=== PATIENT | male | born 1950 | race Caucasian/White ===

== ENCOUNTER 2017-11-16 10:50 | Emergency (ER) | payer MEDICARE, OTHER ==
[2017-11-16 12:06] VITALS: TEMP 96.5
--- NOTE | 2017-11-16 12:34 | ED.PDOC ---
History of Present Illness - General Chief Complaint: Problem Stated Complaint: difficulty urinating Time Seen by Provider: 11/16/17 12:25 Source: patient, Vital Signs reviewed Additional Information: 67 YEAR OLD WHITE MALE HERE WITH CHIEF COMPLAINT OF INABILITY TO URINATE HE HAD SEEN HIS UROLOGIST [place] LAST WEEK HE WAS ASKED TO SELF CATHERTERIZE BUT HE UNABLE TO DO SO HE IS NOT ABLE TO PASS THE CATHERTER HE HAS NO FEVER CHILLS NO FLANK PAIN NO HEMATURIA OR DYSURIA BUT HAS URGENCY AND FREQUENCY BUT ONLY PASSES FEW TRIBBLES - History of Present Illness Timing/Duration: week Quality: moderate Onset Location: suprapubic Radiation: none Activites at Onset: none Sexual intercourse history: not active Improving Factors: nothing Worsening Factors: nothing Associated Symptoms: denies symptoms Allergies/Adverse Reactions: Allergies NO KNOWN ALLERGY Allergy (Verified 01/31/16 17:47) Home Medications: Ambulatory Orders Aspirin [Christina Low Dose] 81 mg PO DAILY 01/31/16 Atorvastatin Calcium [Lipitor] 20 mg PO BEDTIME 01/31/16 Clopidogrel Bisulfate [Plavix] 75 mg PO QD 01/31/16 Linagliptin [Tradjenta] 5 mg PO DAILY 01/31/16 Metformin HCl 1,000 mg PO BID 01/31/16 Metoprolol Tartrate 25 mg PO BID 01/31/16 Spironolactone 50 mg PO DAILY 01/31/16 Celecoxib 200 mg PO DAILY 11/16/17 Insulin Degludec [Tresiba Flextouch] 25 unit SC DAILY 11/16/17 Tamsulosin [Flomax] 0.4 mg PO QD 11/16/17 flavoxATE HYDROCHLORIDE [Urispas] 100 mg PO Q8HRS #30 tab 11/16/17 Review of Systems - Review of Systems Constitutional: States: no symptoms reported EENTM: States: no symptoms reported Respiratory: States: no symptoms reported Cardiology: States: no symptoms reported Gastrointestinal/Abdominal: States: no symptoms reported Genitourinary: States: see HPI Musculoskeletal: States: no symptoms reported Skin: States: no symptoms reported Neurological: States: no symptoms reported Endocrine: States: no symptoms reported Past Medical History (General) - Patient Medical History Hx Seizures: No Hx Stroke: No Hx Asthma: No Hx of COPD: No Hx Cardiac Disorders: Yes - Recent stint placement Hx Congestive Heart Failure: No Hx Pacemaker: No Hx Hypertension: No Hx Diabetes: Yes Hx MRSA: No Surgical History: cholecystectomy - Vaccination History Hx Influenza Vaccination: No Hx Pneumococcal Vaccination: No - Social History Hx Tobacco Use: Yes Hx Alcohol Use: No Hx Substance Use: No Hx Physical Abuse: No Hx Emotional Abuse: No Family Medical History - Family History Father Family History: Unknown Living Status: Unknown Physical Exam - Physical Exam General Appearance: Alert, Anxious Eyes, Ears, Nose, Throat Exam: PERRL/EOMI, normal ENT inspection, TMs normal Neck: non-tender, full range of motion, supple, normal inspection Cardiovascular/Respiratory: regular rate, rhythm, no M/R/G, normal peripheral pulses, no JVD, normal breath sounds, no respiratory distress Gastrointestinal/Abdominal: normal bowel sounds, non tender, soft Male Genital Exam: normal genitalia, normal prostate, no hernia Neurologic: body straightener II-XII nml as tested, no motor/sensory deficits, alert, normal mood/affect, oriented x 3 Skin Exam: normal color Progress - Results/Orders Results/Orders: Laboratory Tests 11/16/17 13:05 Urine Color Yellow Urine Appearance Cloudy Urine pH 5.5 Ur Specific [place] >= 1.030 Urine Protein >=300 H Urine Glucose (UA) 250 H Urine Ketones Trace Urine Blood Large H Urine Nitrite Negative Urine Bilirubin Negative Urine Urobilinogen 0.2 Ur Leukocyte Esterase Moderate H Urine RBC Obscured by wbc's H Urine WBC Tntc H Ur Epithelial Cells 0 Urine Bacteria Obscured by wbc's H 16 FR URINARY HORN CATHETER PLACED WITH DIFFICULTY ( SOME RESISTANCE FELT DURING INTRODUCTION 300 CC URINE DRAINED THAT APPEARED CLOUDY UA SUGGESTIVE OF INFECTION WILL ASK HIM TO CONTINUE CIPRO THAT HE IS ON AND LEAVE THE HORN IN WITH A LEG BAG FOLLOW UP WTH HIS UROLOGIST TOMORROW WE WILL ADD URISPAS FOR SYMTOMATIC TREATMENT OF HIS BLADDER SPASM Departure - Departure Clinical Impression: Urinary tract infection, Urethritis Time of Disposition: 13:39 Disposition: Discharge to Home or Self Care Condition: Good Departure Forms: ED Discharge - Pt. Copy, Patient Portal Self Enrollment Diet: resume usual diet Referrals: Jay Carlos MD [Primary Care Provider] - 1-2 Weeks Home Medications: Ambulatory Orders Aspirin [Christina Low Dose] 81 mg PO DAILY 01/31/16 Atorvastatin Calcium [Lipitor] 20 mg PO BEDTIME 01/31/16 Clopidogrel Bisulfate [Plavix] 75 mg PO QD 01/31/16 Linagliptin [Tradjenta] 5 mg PO DAILY 01/31/16 Metformin HCl 1,000 mg PO BID 01/31/16 Metoprolol Tartrate 25 mg PO BID 01/31/16 Spironolactone 50 mg PO DAILY 01/31/16 Celecoxib 200 mg PO DAILY 11/16/17 Insulin Degludec [Tresiba Flextouch] 25 unit SC DAILY 11/16/17 Tamsulosin [Flomax] 0.4 mg PO QD 11/16/17 flavoxATE HYDROCHLORIDE [Urispas] 100 mg PO Q8HRS #30 tab 11/16/17
[2017-11-16 13:31] VITALS: BP 139/79; O2SAT 94
== END 2017-11-16 13:47 | disposition home or self-care (01) ==
LOC: ER 10:50
DX: N39.0 Urinary tract infection, site not specified (principal); N34.2 Other urethritis; E11.9 Type 2 diabetes mellitus without complications; Z79.84 Long term (current) use of oral hypoglycemic drugs; Z87.891 Personal history of nicotine dependence; Z98.61 Coronary angioplasty status; Z79.82 Long term (current) use of aspirin

== ENCOUNTER → 2019-01-12 | Outpatient (CLI) | payer MEDICARE ==
--- NOTE | 2019-01-12 15:41 | CT ---
EXAM DESCRIPTION: Chest w/o Contrast : Computed Tomography. CLINICAL HISTORY: 68 years Male CHRONIC OBSTRUCTIVE LUNG DISEASE COMPARISON: Chest and thorax CT scan 11/28/2015. TECHNIQUE: Spiral-axial scans at 5 x 5 mm intervals through the lungs and thorax without IV contrast. 2.5 x 5 mm lung algorithm axial reconstructions. 2.0 Mm reconstructions. No adverse reactions. Total Exam DLP: 465.5. mGy-cm. This exam was performed according to our departmental dose-optimization program which includes automated exposure control, adjustment of the mA and/or kV according to patient size and/or use of iterative reconstruction technique; to reduce radiation dose to as low as reasonably achievable (ALARA). Nodule measurements under 10 mm are given as mean value of 3 axes diameters. FINDINGS: Lungs and large airways: Round calcified nodule in the medial aspect of the superior segment right lower lobe measuring 8 mm on this study compared to 7.2 mm on the prior study. Soft tissue nodule abutting the pleura without calcification lateral aspect of the superior segment measuring 1 cm (axial series 4, image 84) compared to 9 mm on the prior study. Stable 3.5 mm nodule abutting the pleura in the lateral segment right middle lobe on image 4/88 stable since the prior study as well as aline-fissural nodule and a slightly lower level on the horizontal fissure on image 4/90 stable 5 mm nodule abutting the pleura lateral right upper lobe on image 4/52. Stable 4 mm subpleural nodule anterior right upper lobe on image 4/46. Stable 2 mm nodule lateral subpleural right upper lobe on image 4/56. Bilateral posterior dependent atelectasis. 4.5 mm subpleural lateral right lower lobe, stable solid nodule on image 4/75. 2 new 5 mm solid nodules in the subpleural lateral left lower lobe on images 4/85-87. Subpleural blebs and bulla in the superior segment. Stable 4.9 mm solid nodule superior segment left lower lobe medially on image 4/64 new 4 mm nodule in the inferior lingula subpleural laterally on image 4/86. Emphysematous changes with multiple blebs and bulla in a paraseptal distribution, more numerous in the upper lobes than the lower lobes. Minimal bilateral perihilar peribronchial wall cuffing.. Pleural spaces: No effusion or pneumothorax. Mediastinum and Tania: Small lymph nodes stable since the prior study. Great vessels and Heart: Coronary artery calcifications and stents. Calcifications aortic arch, descending thoracic aorta, and proximal brachiocephalic vessels. Soft tissues of neck base, axillae, and chest wall: Negative. Upper abdomen: Please see abdominal pelvic CT scan today. Osseous structures: Bilateral arthrosis in the shoulders. Arthrosis in the manubriosternal joint. Arthrosis in the bilateral first costochondral joints. The cartilage is significantly calcified. IMPRESSION: 1. Multiple bilateral lung nodules more numerous in the right upper lobe, middle lobe and lingula, and the bilateral lower lobes. Most of the nodules are stable since prior CT scan in November 2015. There are 2 new nodules approximately 5 mm in diameter in the superior segment of the left lower lobe, and the inferior lingula of the left upper lobe which are new since the prior CT scan. Patient also has diffuse paraseptal type emphysema more prevalent in the bilateral upper lobes this is stable since the prior study. The new left lung nodules may represent inflammatory process, or other chronic slow-growing process. Recurrent primary or metastatic disease is less likely. Recommend CT scan of the chest and thorax with IV contrast in 3-6 month interval, and follow-up [address] scan with IV contrast is stable. Electronically signed by: Roddy Navarro MD 01/12/2019 3:39 PM CDT
--- NOTE | 2019-01-12 16:27 | CT ---
EXAM DESCRIPTION: Abdomen/Pelvis w/wo Contrast: Computed Tomography. CLINICAL HISTORY: ABDOMINAL PAIN COMPARISON: CT scan of the chest without contrast on this visit. CT scan abdomen and pelvis without contrast 01/31/2016. TECHNIQUE: Spiral-axial scans at 5 x 5 mm intervals through the abdomen and pelvis before and after 75 mL Optiray 320 nonionic IV contrast. No oral contrast. Coronal and sagittal 2.0 mm reconstructions. 5 x 5 mm Delayed helical-axial scans, liver through the pubic symphysis. No adverse reactions. Total Exam DLP 1391.53 mGy - cm. This exam was performed according to our departmental CT dose-optimization program which includes automated exposure control, adjustment of the mA and/or kV according to patient size and/or use of iterative reconstruction technique; to reduce radiation dose to as low as reasonably achievable (ALARA). FINDINGS: Lung bases and pleura: Multiple nodules. Please see chest CT images and report. Liver, Stomach, Spleen, Adrenal Glands: Calcification spleen. Stomach negative. Other solid organs unremarkable. Pancreas, Gallbladder, Ducts: Gallbladder surgically removed with no fluid in the gallbladder fossa. Minimal dilation common bile duct. Pancreas negative. Kidneys and Ureters: Unremarkable. Mesentery: Negative. Aorta: Marked atherosclerotic calcification and intimal wall thickening. Thickening and mural thrombus begins just below the origin of the SMA, increases thickness in the infrarenal segment. 3.2 x 2.9 Centimeters aneurysm at the L3 level. 2.8 x 2.5 cm on the prior study. Lumen caliber is 2.0 x 1.9 cm. Approximately 2.7 cm long, involving the origin of the CHEMA, and distal margin is 3 cm above the bifurcation. No para-aortic mass or contrast extravasation. Small Bowel: Mild distention with air-fluid levels throughout more proximal than distal but no transition point. Terminal Ileum/Cecum: TI unremarkable with cecum slightly distended by gas and fecal matter. Normal caliber of the appendix with no surrounding inflammatory changes. Colon: Minimal distention also ascending colon with gas/fecal matter, extending into the transverse colon which is also distended by gas to the proximal descending colon. Diffuse diverticula proximal sigmoid colon and the descending colon is decompressed with no complications. Pelvic Organs: Urinary bladder suprapubic catheter, new since the prior study, with balloon inflated and the bladder is decompressed. Bilateral large calcifications in the prostate gland. No free fluid or pelvic soft tissue mass. Spine and Bony Pelvis: Advanced spondylosis more right than left L4-L5 and minimal spondylosis more left than right L2-L3. Also degenerative scoliosis lumbar upper dextroscoliosis and lower levoscoliosis. Narrowing of the bilateral hip joints. Abdominal Wall/Back Soft Tissues: No complications around the suprapubic catheter. Bilateral fatty inguinal hernias not containing bowel extending to the scrotum. Small diastases at the umbilicus not containing bowel. IMPRESSION: 1.3.2 cm abdominal aortic aneurysm. Minimal enlargement since the prior study in January 2016. Recommend follow-up every 3 years. Reference: J Am Panfilo Radiol 2013;10:789-794. 2. Cholecystectomy since the prior study. Multiple splenic calcifications stable. Sigmoid colon diverticulosis without complications stable. Constipation proximal colon extending into the transverse colon along with increased gas. Minimal distention of the small bowel more proximal to distal with air-fluid levels also seen on the prior scan. Electronically signed by: Roddy Navarro MD 01/12/2019 4:25 PM CDT
== END ==
LOC: LAB.O 12:32
PROVIDERS: ATTEND Family Medicine
DX: J44.9 Chronic obstructive pulmonary disease, unspecified (principal); R91.8 Other nonspecific abnormal finding of lung field; I71.4 Abdominal aortic aneurysm, without rupture; N63.10 Unspecified lump in the right breast, unspecified quadrant; K80.20 Calculus of gallbladder without cholecystitis without obstruction; K59.00 Constipation, unspecified; K57.30 Diverticulosis of large intestine without perforation or abscess without bleeding; E11.9 Type 2 diabetes mellitus without complications

== ENCOUNTER → 2019-01-14 | Outpatient (CLI) | payer MEDICARE ==
--- NOTE | 2019-01-14 20:13 | US ---
EXAM DESCRIPTION: Diagnostic Mammo,Bilateral (accession [id number]), Breast,Bilateral (accession [id number]): Ultrasound CLINICAL HISTORY: 68 yearsMaleUNSPECIFIED LUMP IN THE RIGHT BREAST UNSPEC QUADRANT patient has been on spironolactone. Increased risk for gynecomastia. Movable hard mass behind right nipple.. COMPARISON: CT scan of the chest and thorax without IV contrast on 2018. TECHNIQUE: Bilateral LM, MLO, and CC projection full-field images, digital mammographic tomosynthesis technique. Bilateral 2-D digital full-field images. LM, MLO, and CC: CAD not utilized. . Transcutaneous scanning of the right breast utilizing mcneal-scale and Doppler modes. Scanning performed by the orchid superintendent and Dr. Navarro. FINDINGS: The breast parenchymal density pattern is: Almost entirely fatty. No skin thickening or nipple retraction increased retroareolar density bilaterally similar in volume consistent with gynecomastia. Mass density in the retroareolar right breast with coarse central calcification. Similar appearance as a degenerating fibroadenoma. Lobulated borders with some spiculation. 1.7 x 1.6 x 1.4 cm. No other calcifications bilaterally. Ultrasound: Scanning of the bilateral retroareolar breast. Right breast demonstrates hypoechoic rim with central echogenic regions with some shadowing consistent with calcifications. The mass is predominantly demonstrating posterior acoustic enhancement with edge shadowing. Hypoechoic tissue in the retroareolar left breast with ill-defined margins and verbal posterior acoustic transmission. IMPRESSION: 1. BI-RADS Category 4: SUSPICIOUS. Sub-category 4A - Low Suspicion For Malignancy. 2. Surgical consultation and tissue diagnosis is recommended if there are no clinical contraindications. The FINDINGS and FOLLOW-UP plan were reviewed in person with the patient following the examination. Written communication explaining the IMPRESSION and FOLLOW-UP will be mailed to the patient and referring care provider. CRITICAL COMMUNICATION: The critical value was communicated by text message from Dr. Navarro 953 hours, with text acknowledgment by Dr. Mj Carlos at approximately 954 hours, on January 14, 2019. Electronically signed by: Roddy Navarro MD 01/14/2019 8:11 PM CDT
== END ==
LOC: MAMMO 09:00
PROVIDERS: ATTEND Family Medicine
DX: N63.10 Unspecified lump in the right breast, unspecified quadrant (principal)

== ENCOUNTER → 2019-01-26 | Outpatient (CLI) | payer MEDICARE ==
--- NOTE | 2019-01-27 15:08 | US ---
EXAM DESCRIPTION: Biopsy/Needle Guidance CLINICAL HISTORY: 68 yearsMaleBREAST LUMP COMPARISON: Diagnostic ultrasound of the right breast on 01/14/2019. TECHNIQUE: The procedure was performed by Dr. Garland. Repeat ultrasound localized the lesion at the retroareolar position of the right breast. Sterile preparation. Sterile ultrasound guidance. FINDINGS: 2.0 x 1.8 cm heterogeneous hypoechoic and hyperechoic right retroareolar mass, on images prior to the procedure. No images taken during the procedure. IMPRESSION: Successful, ultrasound-guided needle core biopsy of right retroareolar breast mass in a 68-year-old male. Pathology examination at remote facility, results pending. Electronically signed by: Roddy Navarro MD 01/27/2019 3:07 PM CDT
== END ==
LOC: US 11:00
PROVIDERS: ATTEND Surgery
DX: D05.91 Unspecified type of carcinoma in situ of right breast (principal)

== ENCOUNTER 2019-01-28 05:39 | Day surgery (SDC) | payer MEDICARE ==
[2019-01-28] MEDS ORDERED: PROPOFOL 200 MG/20 ML VIAL IV ONE (07:00)
[2019-01-28] MEDS ORDERED: LIDOCAINE 1% 10 ML VIAL INJ ONE (07:00)
[2019-01-28] MEDS ORDERED: LACTATED RINGERS 1,000 ML ONE (07:17)
[2019-01-28 08:27] VITALS: O2SAT 93
--- NOTE | 2019-01-28 09:48 | OP ---
DATE OF PROCEDURE: 01/28/19 PREOPERATIVE DIAGNOSIS: 1. Anemia, need for colonoscopy. The patient is also on blood thinners that cannot be stopped at this time. POSTOPERATIVE DIAGNOSIS: 1. Anemia, need for colonoscopy. The patient is also on blood thinners that cannot be stopped at this time. PROCEDURE: 1. Colonoscopy. SURGEON: Maynor Galrand MD ANESTHESIA: General. FINDINGS: One cecal polyp approximately 4 mm, possibly adenomatous. Another hyperplastic polyp in the distal ascending colon, otherwise normal. No evidence of colitis. COMPLICATIONS: None. ESTIMATED BLOOD LOSS : None. CONDITION: Stable. PLAN: Discharge. INDICATION: The patient is a 68-year-old man recently placed on blood thinners. He has also had a history of anemia. He has not had a colonoscopy. We are also evaluating him for right breast mass, but he needs a colonoscopy. Per evaluation by his pipelines manager, he cannot go off the blood thinners at this time, so we discussed a diagnostic, nontherapeutic colonoscopy. PROCEDURE: General anesthesia was induced, which he tolerated. The colonoscope was passed with minor difficulty in through the twisted sigmoid colon, but otherwise it went well. We saw the terminal ileum. The colonic wall was relatively thin. We could see the peristalsis of the small bowel through much of the ascending colon. There was a small, possibly adenomatous polyp in the cecum. There was no evidence of bleeding. It was estimated just over 4 mm. Otherwise, no other significant polyps were seen. There was a small hyperplastic polyp noticed in the distal ascending colon. The rest of the exam was normal but for diverticulosis. He tolerated the procedure and was then taken to Recovery to be discharged. I will see him next week regarding his breast biopsy and further recommendations on the colon. [id number]
[2019-01-28 10:24] VITALS: BP 120/74; TEMP 97.3
== END 2019-01-28 10:10 | disposition home or self-care (01) ==
LOC: AMB 05:39
PROVIDERS: ATTEND Surgery
DX: D64.9 Anemia, unspecified (principal); D12.2 Benign neoplasm of ascending colon; K57.30 Diverticulosis of large intestine without perforation or abscess without bleeding; E11.9 Type 2 diabetes mellitus without complications; J44.9 Chronic obstructive pulmonary disease, unspecified; N63.10 Unspecified lump in the right breast, unspecified quadrant; F17.210 Nicotine dependence, cigarettes, uncomplicated; Z90.49 Acquired absence of other specified parts of digestive tract; Z79.84 Long term (current) use of oral hypoglycemic drugs; Z79.02 Long term (current) use of antithrombotics/antiplatelets; Z79.82 Long term (current) use of aspirin; Z79.899 Other long term (current) drug therapy
CPT/HCPCS: 00811; 36416; 45378; 82948; J3490; J7120

== ENCOUNTER 2019-02-12 05:31 | Day surgery (SDC) | payer MEDICARE ==
[2019-02-12] MEDS ORDERED: BUPIVACAINE 0.5% W/EPI 30 ML VIAL INJ ONE (11:40)
[2019-02-12] MEDS ORDERED: LACTATED RINGERS 1,000 ML ONE (11:47)
[2019-02-12] MEDS ORDERED: ceFAZolin SODIUM 1 GM VIAL ONE (12:03)
[2019-02-12] MEDS ORDERED: SODIUM CHL 0.9% 100ML MINI-BAG 100 ML IVPB ONE (12:03)
--- NOTE | 2019-02-12 13:39 | NM ---
EXAM DESCRIPTION: Lymphatics Lymph Nodes CLINICAL HISTORY: MALIGNANT NEOPLASM OF MALE BREAST RIGHT COMPARISON: Diagnostic bilateral breast digital mammography and directed bilateral breast ultrasound 01/14/2019. Ultrasound-guided core biopsy right breast mass 01/26/2019. TECHNIQUE: Patient supine on scanning table. Procedure performed by Dr. Navarro. Skin surrounding right breast nipple cleaned with alcohol. Approximately 0.251 mCi of the Tc 99M sulfur colloid was injected in 2 volumes,intradermally at the 10:00 and 3:00 positions of the right nipple edge. A total dose 0.534 millicuries of technetium 99m sulfur colloid radiopharmaceutical was injected. Standard precautions for handling the radiopharmaceutical were employed. The patient tolerated the procedure with moderate discomfort . No significant leakage of radiopharmaceutical or hemorrhage. FINDINGS: No images were obtained. IMPRESSION: Successful, subdermal injection of technetium 99m sulfur colloid around the right nipple for sentinel node mapping followed by surgical excision of positive lymph nodes. Electronically signed by: Roddy Navarro MD 02/12/2019 1:37 PM CDT
[2019-02-12] MEDS ORDERED: LEVALBUTEROL NEBS 1.25 MG/3 ML VIAL NEB ONE ×2 (13:41→15:13)
[2019-02-12] MEDS ORDERED: raNITIdine HCL INJ 25 MG/ML VIAL ONE (14:00)
[2019-02-12] MEDS ORDERED: HYDROmorphone HCL INJ 2 MG/ML VIAL ONE (14:00)
[2019-02-12] MEDS ORDERED: PROPOFOL 200 MG/20 ML VIAL IV ONE (14:00)
[2019-02-12] MEDS ORDERED: SODIUM CHLORIDE 0.9% 50 ML VIAL ONE (14:00)
[2019-02-12] MEDS ORDERED: LIDOCAINE 1% 10 ML VIAL INJ ONE (14:00)
[2019-02-12] MEDS ORDERED: MIDAZOLAM INJ 2 MG/2 ML VIAL ONE (14:00)
[2019-02-12] MEDS ORDERED: DEXAMETHASONE INJ 10 MG/ML VIAL ONE (14:00)
--- NOTE | 2019-02-12 14:06 | OP ---
DATE OF PROCEDURE: 02/12/19 PREOPERATIVE DIAGNOSIS: 1. Right breast cancer in a male. POSTOPERATIVE DIAGNOSIS: 1. Right breast cancer in a male. PROCEDURE: 1. Right mastectomy. 2. Injection for sentinel node biopsy. 3. Excision, deep axillary sentinel nodes times 2. SURGEON: Maynor Garland MD. CHARGE ENTRY CLERK: Otilio Mckenzie MD. ANESTHESIA: General and local. FINDINGS: Central tumor, subareolar, with grossly negative skin and chest margins with no fixation. One blue node in the axilla, 5000 radioactive count. An additional 3 mm node and some background above the axilla, nonsentinel nodes. Otherwise, negative clinical axilla. COMPLICATIONS: None. ESTIMATED BLOOD LOSS: Minimal. SPECIMEN: Breast and axillary sentinel nodes times 2. INDICATION: As stated. PROCEDURE: General anesthesia was induced. He was prepped and draped in sterile fashion. 5 cc of methylene blue dye were injected subareolar and massaged for 5 minutes. A skin sparing incision was made with care to ensure negative skin margins superiorly where the tumor is favored. Incisions were made. The superior flap was created in the visible plane, then the inferior flap additionally. The breast was then removed off the chest with anterior pectoral fascia and out laterally. The specimen was removed and marked short superior and long lateral. We then used the GPS as well as the visible blue lymph channel to identify the initial sentinel node. The count on that was 5000. An additional node about 2000 was seen. It was very small, background in that area of the axilla was 0, but we did identify a node that actually traced up above and underneath the axillary vein. It could not be palpated. It was likely a small node and not franchise sales representative of a sentinel node. At this time, there was excellent hemostasis. A 15 round Christian drain was placed. The wound was closed in 2 layers with absorbable suture and sterile dressing applied. He was awakened and taken to Recovery to be discharged. #[id number] cc: Jay Carlos MD [facility]
[2019-02-12] MEDS ORDERED: ACETAMINOPHEN W/COD #3 TAB 1 EA TAB ONE (14:17)
[2019-02-12] MEDS ORDERED: METHYLENE BLUE 10 MG/ML (10 ML VIAL) IV ONE (15:22)
[2019-02-12 16:14] VITALS: BP 128/72; TEMP 98; O2SAT 93
== END 2019-02-12 13:55 ==
LOC: AMB 05:31
PROVIDERS: ATTEND Surgery
DX: C50.921 Malignant neoplasm of unspecified site of right male breast (principal); C77.3 Secondary and unspecified malignant neoplasm of axilla and upper limb lymph nodes; E11.9 Type 2 diabetes mellitus without complications; J44.9 Chronic obstructive pulmonary disease, unspecified; K59.00 Constipation, unspecified; F17.210 Nicotine dependence, cigarettes, uncomplicated; Z17.0 Estrogen receptor positive status [ER+]; Z79.82 Long term (current) use of aspirin; Z79.84 Long term (current) use of oral hypoglycemic drugs; Z79.899 Other long term (current) drug therapy
CPT/HCPCS: 00400; 19303; 36415; 38525; 78195; 80048; 85025; 88307; 88342; 88361; 94640; A4216; J0690; J1100; J1170; J2250; J2780; J3490; J7050; J7120; J7614